=== PATIENT | female | born 1995 | race Caucasian/White ===

== ENCOUNTER 2016-09-01 02:41 | Emergency (ER) | payer OTHER ==
[2016-09-01] MEDS ORDERED: DEXAMETHASONE 4 MG TAB PO ONE (03:01)
[2016-09-01] MEDS ORDERED: HYDROCODONE/APAP 5/325 TAB PO ONE (03:01)
--- NOTE | 2016-09-01 03:04 | EDPHY ---
H & P Stated Complaint: sore throat Time Seen by Provider: 09/01/16 02:54 HPI/ROS: HPI The patient presents with several days of sore throat, was diagnosed with strep pharyngitis yesterday by PMD and started on penicillin. She has continued throat pain which is severe, keeping her up at night, is constant and aching. She does not have a fever. She does not have any neck pain or stiffness.. REVIEW OF SYSTEMS Constitutional: No fever, no chills. Eyes: No discharge. ENT: Positive for Cardiovascular: No chest pain, no palpitations. Respiratory: No cough, no shortness of breath. Gastrointestinal: No abdominal pain, no vomiting. Genitourinary: No hematuria. Musculoskeletal: No back pain. Skin: No rashes. Neurological: No headache. PMHx: History of attention deficit hyperactivity disorder, status post appendectomy PHYSICAL General Appearance: Alert, no distress Eyes: Pupils equal and round no pallor or injection ENT, Mouth: Mucous membranes moist, posterior pharynx is erythematous and slightly edematous, tonsils are erythematous with bilateral exudate Respiratory: There are no retractions, lungs are clear to auscultation Cardiovascular: Regular rate and rhythm Neurological: A&O, moves all extremities Skin: Warm and dry, no rashes Musculoskeletal: Neck is supple non tender, with full range of motion Extremities: symmetrical, full range of motion Psychiatric: Patient is oriented X 3, there is no agitation Source: Patient Exam Limitations: No limitations - Personal History LMP (Females 10-55): IUD In Place Current Tetanus/Diphtheria Vaccine: Yes - Medical/Surgical History Hx Asthma: No Hx Chronic Respiratory Disease: No Hx Diabetes: No Hx Cardiac Disease: No Hx Renal Disease: No Hx Cirrhosis: No Hx Alcoholism: No Hx HIV/AIDS: No Hx Splenectomy or Spleen Trauma: No Other PMH: PMHx: ADHD. PSHx: APPY - Social History Smoking Status: Never smoked Constitutional: Initial Vital Signs Temperature (C) 36.8 C 09/01/16 02:44 Heart Rate 87 09/01/16 02:44 Respiratory Rate 14 09/01/16 02:44 Blood Pressure 99/58 L 09/01/16 02:44 O2 Sat (%) 100 09/01/16 02:44 O2 Delivery Mode Room Air Allergies/Adverse Reactions: hydromorphone HCl [From Dilaudid] Allergy (Verified 07/19/15 19:58) Home Medications: Medication Instructions Recorded Akualify 09/01/16 Escitalopram Oxalate 09/01/16 morphINE IR [morphINE IR 15 mg (*)] 15 mg PO Q4H PRN #7 tab 09/01/16 Medical Decision Making Differential Diagnosis: This is a 20-year-old female who was recently diagnosed with strep pharyngitis who presents with continued throat pain. On exam, she has findings suggestive of pharyngitis with good range of motion of her neck, thus I doubt deep space neck infection. Differential diagnosis includes strep pharyngitis, viral pharyngitis, less likely retropharyngeal abscess. In the emergency room, the patient was given Decadron and [place] for pain. I will discharge her home with morphine tabs. I have discussed using ibuprofen, Tylenol and then if the pain is severe she can take the morphine as needed. - Data Points Medications Given: Discontinued Medications Hydrocodone Bitart/Acetaminophen ([place] 5/325) 2 tab PO EDNOW ONE Stop: 09/01/16 03:02 Last Admin: 09/01/16 03:10 Dose: 2 tab Dexamethasone (Decadron) 10 mg PO EDNOW ONE Stop: 09/01/16 03:02 Last Admin: 09/01/16 03:10 Dose: 10 mg Departure - Departure Disposition: Home, Routine, Self-Care Clinical Impression: Strep throat Condition: Good Instructions: Strep Throat (ED) Additional Instructions: You should take ibuprofen 400 mg and acetaminophen 650 mg every 6 hours with food. If the pain is still severe, you can take the morphine tablet to help with pain. Referrals: AISHA GAMINO [Other] - As per Instructions Prescriptions: morphINE IR [morphINE IR 15 mg (*)] 15 mg PO Q4H PRN #7 tab PRN Reason: Pain, Breakthrough
[2016-09-01 03:05] VITALS: BP 99/58; PULSE 87; RESP 14; TEMP 98.2; O2SAT 100
== END 2016-09-01 03:21 | disposition home or self-care (01) ==
DX: J02.0 Streptococcal pharyngitis (principal)

== ENCOUNTER 2016-09-06 17:50 | Emergency (ER) | payer OTHER ==
--- NOTE | 2016-09-06 18:12 | EDPHY ---
H & P Stated Complaint: Low abd cramping x 5 hrs; has IUD Time Seen by Provider: 09/06/16 18:04 HPI/ROS: CHIEF COMPLAINT: abdominal pain HISTORY OF PRESENT ILLNESS: 20-year-old female presents emergency department complaining of lower abdominal pain that began 6 hours prior to arrival. Patient reports she was sitting on the couch when this started, pain is low in abdomen, crampy with sharp pains, intermittent and moderate. Patient denies urinary urgency, frequency or dysuria. She does report bilateral flank pain. She reports nausea when the pains come. Patient reports she is sexually active , denies vaginal discharge. Was treated for Chlamydia 1 year ago. Patient reports she had her appendix removed. REVIEW OF SYSTEMS: A comprehensive 10 point review of systems is otherwise negative aside from elements mentioned in the history of present illness. Source: Patient Exam Limitations: No limitations - Personal History LMP (Females 10-55): IUD In Place Current Tetanus Diphtheria and Acellular Pertussis (TDAP): Yes - Medical/Surgical History Hx Asthma: No Hx Chronic Respiratory Disease: No Hx Diabetes: No Hx Cardiac Disease: No Hx Renal Disease: No Hx Cirrhosis: No Hx Alcoholism: No Hx HIV/AIDS: No Hx Splenectomy or Spleen Trauma: No Other PMH: PMHx: ADHD, anxiety. PSHx: APPY - Social History Smoking Status: Current every day smoker - Physical Exam Exam: Physical Exam Gen: Alert and Oriented, NAD HEENT: PERRL, moist mucous membranes NECK: no meningismus CV: regular rate and regular rhythm PULM: CTAB, no wheezes ABDOMEN: soft, lower abdomen and suprapubic tenderness to palpation, no guarding , BS present Pelvic exam: The vulva was normal no lesions. The vagina did not have significant discharge. The cervix was closed no bleeding and no purulent drainage. The uterus was normal size and non tender. The adnexa had no masses and no tenderness. 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 BACK: Bilateral CVA tenderness NEURO: Neurologically grossly intact EXTREMITIES: normal appearing SKIN: no rash or break in skin on exposed skin PSYCH: answers questions appropriately. Constitutional: Initial Vital Signs Temperature (C) 36.9 C 09/06/16 17:53 Heart Rate 84 09/06/16 17:53 Respiratory Rate 18 09/06/16 17:53 Blood Pressure 103/60 09/06/16 17:53 O2 Sat (%) 97 09/06/16 17:53 O2 Delivery Mode Room Air Allergies/Adverse Reactions: hydromorphone HCl [From Dilaudid] Allergy (Intermediate, Verified 09/06/16 17:53 ) face swells Home Medications: Medication Instructions Recorded ARIPiprazole [Abilify 2 mg (*)] 2 mg PO DAILY 09/06/16 Iud 09/06/16 Zolpidem Tartrate [Ambien 5MG (*)] 5 mg PO HS 09/06/16 Medical Decision Making - Diagnostics Imaging Results: Imaging Impressions Pelvic/Renal Ultrasound 09/06/16 18:12 Impression: 1. IUD in good position within the endometrial canal. 2. No significant abnormality within the pelvis. Findings discussed with Melvi Machado NP at 19:57 hour, 09/06/2016. ED Course/Re-evaluation: IV established, CBC, chemistry panel, urinalysis, urine and pelvic ultrasound have been ordered. Patient is given 50 mcg of fentanyl for her pain. Labs are unremarkable, she has a normal pelvic exam, wet mount is essentially unremarkable, chlamydia and gonorrhea are pending. Patient is given 15 mg of IV Toradol for her pain. She reports feeling better. Vital signs are stable. On pelvic exam her IUD strings are barely visible in os. Patient is given an OBGYN for follow-up for any continued symptoms. She is given strict return precautions for any new symptoms or concerns. Patient is to call for her chlamydia and gonorrhea results in 2 days. Differential Diagnosis: Diagnosis considered but not limited to ovarian cyst, urinary tract infection, tubo-ovarian abscess, PID - Data Points Laboratory Results: Laboratory Results 09/06/16 18:19 09/06/16 18:19 09/06/16 09/06/16 09/06/16 Unknown Unknown 18:19 WBC RBC Hgb Hct MCV MCH MCHC RDW Plt Count MPV Neut % (Auto) Lymph % (Auto) [place] % (Auto) Eos % (Auto) Baso % (Auto) Nucleat RBC Rel Count Absolute Neuts (auto) Absolute Lymphs (auto) Absolute Monos (auto) Absolute Eos (auto) Absolute Basos (auto) Absolute Nucleated RBC Immature Gran % Immature Gran # Sodium Potassium Chloride Carbon Dioxide Anion Gap BUN Creatinine Estimated GFR Glucose Calcium Beta HCG, Qual NEGATIVE Urine Color Urine Appearance Urine pH Ur Specific [place] Urine Protein Urine Ketones Urine Blood Urine Nitrate Urine Bilirubin Urine Urobilinogen Ur Leukocyte Esterase Urine RBC Urine WBC Ur Epithelial Cells Urine Bacteria Urine Mucus Urine Sperm Urine Glucose Urine Test Trichomonas (Wet Prep) 1+ BACTERIA C.trachomatis RNA (TMA) Pending N.gonorrhoeae RNA (TMA) Pending 09/06/16 09/06/16 09/06/16 18:19 18:19 18:00 WBC 7.95 10^3/uL 10^3/uL (3.80-9.50) RBC 4.76 10^6/uL 10^6/uL (4.18-5.33) Hgb 14.2 g/dL g/dL (12.6-16.3) Hct 42.2 % % (38.0-47.0) MCV 88.7 fL fL (81.5-99.8) MCH 29.8 pg pg (27.9-34.1) MCHC 33.6 g/dL g/dL (32.4-36.7) RDW 12.5 % % (11.5-15.2) Plt Count 297 10^3/uL 10^3/uL (150-400) MPV 10.2 fL fL (8.7-11.7) Neut % (Auto) 48.7 % % (39.3-74.2) Lymph % (Auto) 40.3 % % (15.0-45.0) [place] % (Auto) 8.4 % % (4.5-13.0) Eos % (Auto) 1.8 % % (0.6-7.6) Baso % (Auto) 0.5 % % (0.3-1.7) Nucleat RBC Rel Count 0.0 % % (0.0-0.2) Absolute Neuts (auto) 3.88 10^3/uL 10^3/uL (1.70-6.50) Absolute Lymphs (auto) 3.20 10^3/uL H 10^3/uL (1.00-3.00) Absolute Monos (auto) 0.67 10^3/uL 10^3/uL (0.30-0.80) Absolute Eos (auto) 0.14 10^3/uL 10^3/uL (0.03-0.40) Absolute Basos (auto) 0.04 10^3/uL 10^3/uL (0.02-0.10) Absolute Nucleated RBC 0.00 10^3/uL 10^3/uL (0-0.01) Immature Gran % 0.3 % % (0.0-1.1) Immature Gran # 0.02 10^3/uL 10^3/uL (0.00-0.10) Sodium 136 mEq/L mEq/L (134-144) Potassium 4.5 mEq/L mEq/L (3.5-5.2) Chloride 105 mEq/L mEq/L (97-110) Carbon Dioxide 22 mEq/l mEq/l (22-31) Anion Gap 9 mEq/L mEq/L (8-16) BUN 12 mg/dL mg/dL (7-23) Creatinine 1.0 mg/dL mg/dL (0.6-1.0) Estimated GFR > 60 Glucose 97 mg/dL mg/dL (70-100) Calcium 9.3 mg/dL mg/dL (8.5-10.4) Beta HCG, Qual Urine Color YELLOW Urine Appearance HAZY Urine pH 5.0 (5.0-7.5) Ur Specific [place] 1.020 (1.002-1.030) Urine Protein NEGATIVE (NEGATIVE) Urine Ketones NEGATIVE (NEGATIVE) Urine Blood NEGATIVE (NEGATIVE) Urine Nitrate NEGATIVE (NEGATIVE) Urine Bilirubin NEGATIVE (NEGATIVE) Urine Urobilinogen NEGATIVE EU EU (0.2-1.0) Ur Leukocyte Esterase NEGATIVE (NEGATIVE) Urine RBC 1-3 /hpf /hpf (0-3) Urine WBC 1-3 /hpf /hpf (0-3) Ur Epithelial Cells TRACE /lpf /lpf (NONE-1+) Urine Bacteria TRACE /hpf H /hpf (NONE SEEN) Urine Mucus TRACE /lpf /lpf (NONE-1+) Urine Sperm PRESENT /hpf H /hpf (NONE SEEN) Urine Glucose NEGATIVE (NEGATIVE) Urine Test Trichomonas (Wet Prep) C.trachomatis RNA (TMA) N.gonorrhoeae RNA (TMA) 09/06/16 18:00 WBC RBC Hgb Hct MCV MCH MCHC RDW Plt Count MPV Neut % (Auto) Lymph % (Auto) [place] % (Auto) Eos % (Auto) Baso % (Auto) Nucleat RBC Rel Count Absolute Neuts (auto) Absolute Lymphs (auto) Absolute Monos (auto) Absolute Eos (auto) Absolute Basos (auto) Absolute Nucleated RBC Immature Gran % Immature Gran # Sodium Potassium Chloride Carbon Dioxide Anion Gap BUN Creatinine Estimated GFR Glucose Calcium Beta HCG, Qual Urine Color Urine Appearance Urine pH Ur Specific [place] Urine Protein Urine Ketones Urine Blood Urine Nitrate Urine Bilirubin Urine Urobilinogen Ur Leukocyte Esterase Urine RBC Urine WBC Ur Epithelial Cells Urine Bacteria Urine Mucus Urine Sperm Urine Glucose Urine Test NEGATIVE Trichomonas (Wet Prep) C.trachomatis RNA (TMA) N.gonorrhoeae RNA (TMA) Medications Given: Discontinued Medications Fentanyl (Sublimaze) 50 mcg IVP EDNOW ONE Stop: 09/06/16 18:22 Last Admin: 09/06/16 18:29 Dose: 50 mcg Ketorolac Tromethamine (Toradol) 15 mg IVP EDNOW ONE Stop: 09/06/16 20:49 Last Admin: 09/06/16 21:26 Dose: 15 mg Ondansetron HCl (Zofran) 4 mg IVP EDNOW ONE Stop: 09/06/16 18:22 Last Admin: 09/06/16 18:29 Dose: 4 mg Departure - Departure Disposition: Home, Routine, Self-Care Clinical Impression: Pelvic pain Condition: Good Instructions: Pelvic Pain in Women (ED) Additional Instructions: Take 600 mg of ibuprofen every 8 hours with food for 3-5 days, heating pad to your abdomen. Follow up with OBGYN for any continued or worsening symptoms. Call the emergency department in 48 hours for chlamydia and gonorrhea results. [phone]. Return to the emergency department for any worsening symptoms, fevers, vomiting, any new symptoms or concerns. Referrals: Eugenie Ortiz DO [Doctor of Osteopathy] - As per Instructions (OBGYN on-call) Stand Alone Forms: School Excuse
[2016-09-06 18:15] LABS: COLOR YELLOW; LEUKOCYTE ESTERASE,URINE NEGATIVE (NEGATIVE); NITRITE,URINE NEGATIVE (NEGATIVE)
[2016-09-06] MEDS ORDERED: fentaNYL 100 MCG/2 ML INJ IVP ONE (18:21)
[2016-09-06] MEDS ORDERED: ONDANSETRON 4 MG/2 ML VIAL IVP ONE (18:21)
[2016-09-06 18:25] LABS: BACTERIA TRACE /hpf (NONE SEEN); MUCUS TRACE /lpf (NONE-1+)
[2016-09-06 18:34] LABS: % IMMATURE GRANULYOCYTES 0.3 % (0.0-1.1); ABSOLUTE IMMATURE GRANULOCYTES 0.02 10^3/uL (0.00-0.10); ADD DIFF? NO; ADD MORPH? NO; ADD SCAN? NO; ATYPICAL LYMPHOCYTE FLAG 20 (0-99); FRAGMENT RBC FLAG 0 (0-99); HEMATOCRIT 42.2 % (38.0-47.0); HEMOGLOBIN 14.2 g/dL (12.6-16.3); LEFT SHIFT FLG 0 (0-99); LIPEMIA HEMOLYSIS FLAG 80 (0-99); MEAN CELL HEMOGLOBIN 29.8 pg (27.9-34.1); MEAN CELL HEMOGLOBIN CONCENTR. 33.6 g/dL (32.4-36.7); MEAN CELL VOLUME 88.7 fL (81.5-99.8); MEAN PLATELET VOLUME 10.2 fL (8.7-11.7); PLATELET CLUMPS FLAG 0 (0-99); PLATELET COUNT 297 10^3/uL (150-400); RED BLOOD CELL COUNT 4.76 10^6/uL (4.18-5.33); RED CELL DISTRIBUTION WIDTH 12.5 % (11.5-15.2)
[2016-09-06 18:51] LABS: ANION GAP 9 mEq/L (8-16); CALCIUM 9.3 mg/dL (8.5-10.4); CARBON DIOXIDE 22 mEq/l (22-31); CHLORIDE 105 mEq/L (97-110); GLOMERULAR FILTRATION RATE > 60; GLUCOSE 97 mg/dL (70-100); POTASSIUM 4.5 mEq/L (3.5-5.2); SODIUM 136 mEq/L (134-144)
[2016-09-06] MEDS ORDERED: KETOROLAC 15 MG/1 ML SDV IVP ONE (20:48)
[2016-09-06 21:06] VITALS: BP 97/53; PULSE 64; RESP 18; TEMP 98.1; O2SAT 99
[2016-09-07 13:02] LABS: CHLAMYDIA AMPLIFICATION GENPRB NEGATIVE (NEGATIVE)
== END 2016-09-06 21:52 | disposition home or self-care (01) ==
DX: R10.2 Pelvic and perineal pain (principal); F17.200 Nicotine dependence, unspecified, uncomplicated
CPT/HCPCS: 96374; J1885; J2405; J3010

== ENCOUNTER 2016-09-07 20:19 | Emergency (ER) | payer OTHER ==
[2016-09-07 20:22] VITALS: O2SAT 97
[2016-09-07] MEDS ORDERED: ONDANSETRON 4 MG/2 ML VIAL IVP ONE (20:38)
[2016-09-07] MEDS ORDERED: NS 1,000 ML IV ONE (20:38)
--- NOTE | 2016-09-07 20:38 | EDPHY ---
H & P Stated Complaint: Abd Pain HPI/ROS: HPI CHIEF COMPLAINT: Abdominal pain recently here in September 06 HISTORY OF PRESENT ILLNESS: This patient 20-year-old female was seen recently here on September 06 for abdominal pain. At that time she had unremarkable pelvic , and pelvic ultrasound IUD was in good position. She has a previous appendectomy, she presents back to the emergency room worsening abdominal pain it is periumbilical. Mid abdomen. No pelvic pain. Denies vaginal bleeding or vaginal discharge. States she has cramps that her intermittent very severe sharp stabbing in nature mid abdomen. there is some baseline lower abdominal pain as well. No chest pain or shortness of breath. She does tell me it hurts with bumps, and deep breaths in. Also tells me she has some lower back pain. No urinary symptoms. No chest pain or shortness of breath or productive cough. Past Medical History: IUD, anxiety, attention deficit hyperactivity disorder Past Surgical History: Appendectomy Social History: Denies daily use drugs alcohol tobacco products Family History: Noncontributory ROS REVIEW OF SYSTEMS: A comprehensive 10 point review of systems is otherwise negative aside from elements mentioned in the history of present illness. Exam Constitutional appears well nontoxic, triage nursing summary reviewed, vital signs reviewed, awake/alert. Eyes normal conjunctivae and sclera, EOMI, PERRLA. HENT normal inspection, atraumatic, moist mucus membranes, no epistaxis, neck supple/ no meningismus, no raccoon eyes. Respiratory clear to auscultation bilaterally, normal breath sounds, no respiratory distress, no wheezing. Cardiovascular rate normal, regular rhythm, no murmur, no edema, distal pulses normal. Gastrointestinal soft, mild tenderness palpation mid abdomen periumbilical region no adnexal pain, no pelvic pain., no rebound, no guarding, normal bowel sounds, no distension, no pulsatile mass. Genitourinary no CVA tenderness. Musculoskeletal no midline vertebral tenderness, full range of motion, no calf swelling, no tenderness of extremities, no meningismus, good pulses, neurovascularly intact. Skin pink, warm, & dry, no rash, skin atraumatic. Neurologic awake, alert and oriented x 3, AAOx3, moves all 4 extremities equally, motor intact, sensory intact, CN II-XII intact, normal cerebellar, normal vision, normal speech. Psychiatric normal mood/affect. Heme/Lymph/Immune no lymphadenopathy. Differential diagnosis includes but is not limited to and in no particular order : Bowel obstruction, appendicitis, gallbladder disease, diverticulitis, colitis , enteritis, perforated viscus, gastritis, GERD, esophagitis, urinary tract infection, pyelonephritis, kidney stones Medical Decision Making: IV establishment, IV fluid bolus, IV morphine for acute pain control IV Zofran for nausea. Check urinalysis. CT abdomen pelvis with IV contrast. Re-evaluation: 2203: I did review this patient's blood work and CT scan. Due the concerning finding on the CT scan a possible ruptured ovarian cyst on the right versus tubo -ovarian abscess I did perform another pelvic exam. There is no dk pus from her cervix no significant CMT. There is no significant adnexal tenderness. Her pain is located in her mid abdomen. 2212: I did perform a pelvic exam. Karime Hollingsworth RN at bedside. Unimpressive will pelvic exam. I will consult OBGYN. 2224: Spoke with Dr. Gtz with OBGYN she does recommend treatment for PID. IM Rocephin, doxycycline. Hold with doxycycline, Flagyl. Close OBGYN follow- up with them this week. I did explain this to the patient. I will place her on antibiotics doxycycline , Flagyl, Isabel and Zofran. She does understand return immediately to the emergency room she develops worsening abdominal pain, fever, vomiting. Again on pelvic exam no dk pus. She is at higher risk for PID given IUD. She appears well nontoxic minimally elevated white count no fever here. Re- examination her abdomen is not peritoneal. He did speak about not tractor syndrome however she does not have vomiting after she eats and does not have significant postprandial fullness. 2242: Spent a great deal time discussing all the results with the patient and mom at bedside. Will treat for PID. IM Rocephin here. Doxycycline p.o. here. Doxy and Flagyl for home. Take with food. Follow up closely with OBGYN. Return emergency with his worsening symptoms questions or concerns she understands. Source: Patient - Personal History LMP (Females 10-55): IUD [address] Place Current Tetanus/Diphtheria Vaccine: Yes Current Tetanus Diphtheria and Acellular Pertussis (TDAP): Yes - Medical/Surgical History Hx Asthma: No Hx Chronic Respiratory Disease: No Hx Diabetes: No Hx Cardiac Disease: No Hx Renal Disease: No Hx Cirrhosis: No Hx Alcoholism: No Hx HIV/AIDS: No Hx Splenectomy or Spleen Trauma: No Other PMH: PMHx: ADHD, anxiety. PSHx: APPY - Social History Smoking Status: Current every day smoker Constitutional: Initial Vital Signs Temperature (C) 36.4 C 09/07/16 20:20 Heart Rate 80 09/07/16 20:20 Respiratory Rate 14 09/07/16 20:20 Blood Pressure 112/63 09/07/16 20:20 O2 Sat (%) 97 09/07/16 20:20 O2 Delivery Mode Room Air Allergies/Adverse Reactions: hydromorphone HCl [From Dilaudid] Allergy (Intermediate, Verified 09/07/16 20:20 ) face swells Home Medications: Medication Instructions Recorded ARIPiprazole [Abilify 2 mg (*)] 2 mg PO DAILY 09/06/16 Iud 09/06/16 Zolpidem Tartrate [Ambien 5MG (*)] 5 mg PO HS 09/06/16 Doxycycline Hyclate 100 mg PO BID #28 tablet 09/07/16 Hydrocodone/APAP 5/325 [Isabel 1 - 2 tab PO Q4H PRN #20 tab 09/07/16 5/325] Ondansetron HCl [Zofran] 4 mg PO Q4-6PRN PRN #10 tablet 09/07/16 metroNIDAZOLE [Flagyl 500 mg (*)] 500 mg PO BID #28 tab 09/07/16 Medical Decision Making - Diagnostics Imaging Results: Imaging Impressions Abdomen CT 09/07/16 20:48 Impression: 1. Collapsing cyst versus inflamed fallopian tube right adnexa. Please note that a right ovarian cyst and cul-de-sac free fluid were not present on yesterday's ultrasound. 2. 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 Does the patient have any vomiting or upper abdominal discomfort after eating? Results discussed with Dr. Prescott. General information for patients regarding this examination can be found at [email or web address]. If you have questions or comments about this report, please contact me at (hospital) or [phone] (cell). - Data Points Laboratory Results: Laboratory Results 09/07/16 20:42 09/07/16 20:42 09/07/16 09/07/16 09/07/16 21:40 20:42 20:42 WBC RBC Hgb Hct MCV MCH MCHC RDW Plt Count MPV Neut % (Auto) Lymph % (Auto) [place] % (Auto) Eos % (Auto) Baso % (Auto) Nucleat RBC Rel Count Absolute Neuts (auto) Absolute Lymphs (auto) Absolute Monos (auto) Absolute Eos (auto) Absolute Basos (auto) Absolute Nucleated RBC Immature Gran % Immature Gran # VBG Lactic Acid Sodium 134 mEq/L mEq/L (134-144) Potassium 3.9 mEq/L mEq/L (3.5-5.2) Chloride 102 mEq/L mEq/L (97-110) Carbon Dioxide 24 mEq/l mEq/l (22-31) Anion Gap 8 mEq/L mEq/L (8-16) BUN 12 mg/dL mg/dL (7-23) Creatinine 1.0 mg/dL mg/dL (0.6-1.0) Estimated GFR > 60 Glucose 102 mg/dL H mg/dL (70-100) Calcium 9.2 mg/dL mg/dL (8.5-10.4) Total Bilirubin 0.8 mg/dL mg/dL (0.1-1.4) Conjugated Bilirubin 0.3 mg/dL mg/dL (0.0-0.5) Unconjugated Bilirubin 0.5 mg/dL mg/dL (0.0-1.1) AST 15 IU/L IU/L (14-46) ALT 23 IU/L IU/L (9-52) Alkaline Phosphatase 57 IU/L IU/L (38-126) Total Protein 6.0 g/dL L g/dL (6.3-8.2) Albumin 3.8 g/dL g/dL (3.5-5.0) Lipase 49.0 IU/L IU/L (23-300) Beta HCG, Qual NEGATIVE Urine Color YELLOW Urine Appearance CLEAR Urine pH 5.0 (5.0-7.5) Ur Specific [place] > 1.035 H (1.002-1.030) Urine Protein NEGATIVE (NEGATIVE) Urine Ketones NEGATIVE (NEGATIVE) Urine Blood NEGATIVE (NEGATIVE) Urine Nitrate NEGATIVE (NEGATIVE) Urine Bilirubin NEGATIVE (NEGATIVE) Urine Urobilinogen NEGATIVE EU EU (0.2-1.0) Ur Leukocyte Esterase NEGATIVE (NEGATIVE) Urine Glucose NEGATIVE (NEGATIVE) 09/07/16 09/07/16 20:42 20:42 WBC 10.53 10^3/uL H 10^3/uL (3.80-9.50) RBC 4.44 10^6/uL 10^6/uL (4.18-5.33) Hgb 13.2 g/dL g/dL (12.6-16.3) Hct 40.0 % % (38.0-47.0) MCV 90.1 fL fL (81.5-99.8) MCH 29.7 pg pg (27.9-34.1) MCHC 33.0 g/dL g/dL (32.4-36.7) RDW 12.6 % % (11.5-15.2) Plt Count 308 10^3/uL 10^3/uL (150-400) MPV 10.0 fL fL (8.7-11.7) Neut % (Auto) 62.2 % % (39.3-74.2) Lymph % (Auto) 30.0 % % (15.0-45.0) [place] % (Auto) 6.2 % % (4.5-13.0) Eos % (Auto) 0.8 % % (0.6-7.6) Baso % (Auto) 0.4 % % (0.3-1.7) Nucleat RBC Rel Count 0.0 % % (0.0-0.2) Absolute Neuts (auto) 6.56 10^3/uL H 10^3/uL (1.70-6.50) Absolute Lymphs (auto) 3.16 10^3/uL H 10^3/uL (1.00-3.00) Absolute Monos (auto) 0.65 10^3/uL 10^3/uL (0.30-0.80) Absolute Eos (auto) 0.08 10^3/uL 10^3/uL (0.03-0.40) Absolute Basos (auto) 0.04 10^3/uL 10^3/uL (0.02-0.10) Absolute Nucleated RBC 0.00 10^3/uL 10^3/uL (0-0.01) Immature Gran % 0.4 % % (0.0-1.1) Immature Gran # 0.04 10^3/uL 10^3/uL (0.00-0.10) VBG Lactic Acid 0.9 mmol/L mmol/L (0.7-2.1) Sodium Potassium Chloride Carbon Dioxide Anion Gap BUN Creatinine Estimated GFR Glucose Calcium Total Bilirubin Conjugated Bilirubin Unconjugated Bilirubin AST ALT Alkaline Phosphatase Total Protein Albumin Lipase Beta HCG, Qual Urine Color Urine Appearance Urine pH Ur Specific [place] Urine Protein Urine Ketones Urine Blood Urine Nitrate Urine Bilirubin Urine Urobilinogen Ur Leukocyte Esterase Urine Glucose Medications Given: Discontinued Medications Fentanyl (Sublimaze) 75 mcg IVP EDNOW ONE Stop: 09/07/16 22:05 Last Admin: 09/07/16 22:06 Dose: 75 mcg Sodium Chloride (Ns) 1,000 mls @ 0 mls/hr IV ONCE ONE; Wide Open PRN Reason: Protocol Stop: 09/07/16 20:39 Last Admin: 09/07/16 20:44 Dose: 1,000 mls Morphine Sulfate (Morphine) 6 mg IVP EDNOW ONE Stop: 09/07/16 20:49 Last Admin: 09/07/16 20:55 Dose: 6 mg Ondansetron HCl (Zofran) 4 mg IVP EDNOW ONE Stop: 09/07/16 20:39 Last Admin: 09/07/16 20:44 Dose: 4 mg Departure - Departure Disposition: Home, Routine, Self-Care Clinical Impression: PID (acute pelvic inflammatory disease) Abdominal pain Qualifiers: Abdominal location: lower abdomen, unspecified Qualified Code(s): R10.30 - Lower abdominal pain, unspecified Condition: Good Instructions: Pelvic Inflammatory Disease (ED), Acute Abdominal Pain (ED) Additional Instructions: 1. Drink lots of fluids stay well-hydrated. 2.. Do not drink alcohol your taking this antibiotic. 3. Follow up closely this week with OBGYN. 4. Please call their for an appointment. 5. Return emergency room if develops worsening abdominal pain, fever, vomiting. 6. Take antibiotics with food not on an empty stomach. Referrals: AISHA GAMINO [Other] - As per Instructions Emi Gtz MD [Medical Doctor] - As per Instructions Stand Alone Forms: School Excuse Prescriptions: Doxycycline Hyclate 100 mg PO BID #28 tablet Hydrocodone/APAP 5/325 [Isabel 5/325] 1 - 2 tab PO Q4H PRN #20 tab PRN Reason: Pain, Moderate metroNIDAZOLE [Flagyl 500 mg (*)] 500 mg PO BID #28 tab Ondansetron HCl [Zofran] 4 mg PO Q4-6PRN PRN #10 tablet PRN Reason: Nausea/Vomiting, Use 1st
[2016-09-07] MEDS ORDERED: IOPAMIDOL (ISOVUE-300) 100 ML BTL ONE (20:50)
[2016-09-07 20:53] LABS: % IMMATURE GRANULYOCYTES 0.4 % (0.0-1.1); ABSOLUTE IMMATURE GRANULOCYTES 0.04 10^3/uL (0.00-0.10); ADD DIFF? NO; ADD MORPH? NO; ADD SCAN? NO; ATYPICAL LYMPHOCYTE FLAG 20 (0-99); FRAGMENT RBC FLAG 0 (0-99); HEMOGLOBIN 13.2 g/dL (12.6-16.3); LEFT SHIFT FLG 0 (0-99); LIPEMIA HEMOLYSIS FLAG 80 (0-99); MEAN CELL HEMOGLOBIN 29.7 pg (27.9-34.1); MEAN CELL VOLUME 90.1 fL (81.5-99.8); PLATELET CLUMPS FLAG 0 (0-99); PLATELET COUNT 308 10^3/uL (150-400); RED BLOOD CELL COUNT 4.44 10^6/uL (4.18-5.33); RED CELL DISTRIBUTION WIDTH 12.6 % (11.5-15.2)
[2016-09-07 21:13] LABS: ALANINE AMINOTRANSFERASE 23 IU/L (9-52); ALBUMIN 3.8 g/dL (3.5-5.0); ALKALINE PHOSPHATASE 57 IU/L (38-126); ANION GAP 8 mEq/L (8-16); ASPARTATE AMINOTRANSFERASE 15 IU/L (14-46); BILIRUBIN,TOTAL 0.8 mg/dL (0.1-1.4); BILIRUBIN-CONJUGATED 0.3 mg/dL (0.0-0.5); BILIRUBIN-UNCONJUGATED 0.5 mg/dL (0.0-1.1); CALCIUM 9.2 mg/dL (8.5-10.4); CARBON DIOXIDE 24 mEq/l (22-31); CHLORIDE 102 mEq/L (97-110); GLOMERULAR FILTRATION RATE > 60; GLUCOSE 102 mg/dL (70-100); POTASSIUM 3.9 mEq/L (3.5-5.2); SODIUM 134 mEq/L (134-144)
[2016-09-07 21:47] LABS: COLOR YELLOW; LEUKOCYTE ESTERASE,URINE NEGATIVE (NEGATIVE); NITRITE,URINE NEGATIVE (NEGATIVE)
[2016-09-07] MEDS ORDERED: fentaNYL 100 MCG/2 ML INJ IVP ONE (22:04)
[2016-09-07 22:09] VITALS: RESP 20
[2016-09-07] MEDS ORDERED: CEFTRIAXONE IM 350 MG/ML SYRINGE IM ONE (22:22)
[2016-09-07] MEDS ORDERED: DOXYCYCLINE HYCLATE 100 MG CAP/TAB PO ONE (22:23)
[2016-09-07 23:38] VITALS: BP 97/58; PULSE 75; TEMP 98.4
== END 2016-09-07 23:38 | disposition home or self-care (01) ==
DX: N73.9 Female pelvic inflammatory disease, unspecified (principal); F17.200 Nicotine dependence, unspecified, uncomplicated; Z90.49 Acquired absence of other specified parts of digestive tract
CPT/HCPCS: 96374; J0696; J2405; J3010; Q9967

== ENCOUNTER → 2016-11-30 | Outpatient (CLI) | payer OTHER | LOC: FIMAGING 08:26 | PROVIDERS: ATTEND Surgery | DX: K31.5 Obstruction of duodenum (principal) ==